=== PATIENT | male | born 1970 | race American Indian/Alaskan Native ===

== ENCOUNTER 2018-12-15 09:56 | Emergency (ER) | payer SELFPAY ==
[2018-12-15] MEDS ORDERED: Sodium Chloride 0.9% 2.5 ML Syringe FLUSH PRN (10:04)
[2018-12-15] MEDS ORDERED: LORazepam 2 MG/ML SDV IVPUSH ONE ×3 (10:04→13:48)
[2018-12-15] MEDS ORDERED: MVI, Adult with Vitamin K 10 ML, Thiamine 100 MG, Folic Acid 1 MG in Sodium Chloride 0.... IV ONE ×4 (10:04)
[2018-12-15] MEDS ORDERED: Sodium Chloride 0.9% 10 ML Syringe FLUSH PRN (10:04)
[2018-12-15] MEDS ORDERED: Ondansetron 4 MG/2 ML SDV IVPUSH ONE ×2 (10:17→13:49)
[2018-12-15] MEDS ORDERED: Morphine 2 MG/ML Syringe IVPUSH ONE ×2 (10:17→10:55)
--- NOTE | 2018-12-15 10:23 | EDM.PDOC ---
ED HPI GENERAL MEDICAL PROBLEM - General Chief Complaint: Drug or Alcohol Abuse Stated Complaint: back pain Time Seen by Provider: 12/15/18 10:00 Source of Information: Reports: Patient History Limitations: Reports: No Limitations - History of Present Illness INITIAL COMMENTS - FREE TEXT/NARRATIVE: History of present illness: []Patient arrives by EMS with withdrawal symptoms from alcohol and low back and shoulder pain after trying to get out of his truck he slipped on the wet step and hit his lower back on the truck. Patient drinks heavily daily has not had a drink since last night at 10 PM. He feels like he is in withdrawal. Review of systems: As per history of present illness and below otherwise all systems reviewed and negative. Past medical history: As per history of present illness and as reviewed below otherwise noncontributory. Surgical history: As per history of present illness and as reviewed below otherwise noncontributory. Social history: No reported history of drug or alcohol abuse. Family history: As per history of present illness and as reviewed below otherwise noncontributory. Physical exam: General: Well developed, well nourished, tremulous, diaphoretic HEENT: Atraumatic, normocephalic, pupils reactive, negative for conjunctival pallor or scleral icterus, mucous membranes moist, throat clear, neck supple, nontender, trachea midline. Lungs: Clear to auscultation, breath sounds equal bilaterally, chest nontender. Heart: S1S2, regular, negative for clicks, rubs, or JVD. Abdomen: NABS, Soft, nondistended, nontender. Negative for masses or hepatosplenomegaly. Negative for costovertebral tenderness. Pelvis: Stable nontender. Genitourinary: Deferred. Rectal: Deferred. Extremities: Atraumatic, negative for cords or calf pain. Neurovascular unremarkable. Neuro: Awake, alert, oriented. Cranial nerves II through XII unremarkable. Cerebellum unremarkable. Motor and sensory unremarkable throughout. Exam nonfocal. Skin:warm and dry Diagnostics: Hypertensive. EKG, CBC, CMP, troponin, alcohol level, chest x-ray, lumbar spine , right shoulder x-ray, 3 hour troponin-increased from baseline troponin Therapeutics: Banana bag, saline, morphine, his Zofran, Ativan, Lopressor ED Course: stable Dr. Nellie Munguia accepts patient Impression: NSTEMI Chronic alcoholism, withdrawal symptoms, Prescriptions: None Plan: Transfer to [facility] Definitive disposition and diagnosis as appropriate pending reevaluation and review of above. Left Chest Pain Score (Numeric/FACES): 5 Lower Mid Back Pain Score (Numeric/FACES): 7 - Related Data Allergies Allergy/AdvReac Type Severity Reaction Status Date / Time No Known Allergies Allergy Verified 12/15/18 10:35 Home Meds: Home Meds . [No Known Home Meds] 08/26/18 [History] Social & Family History - Family History Family Medical History: Noncontributory ED ROS GENERAL - Review of Systems Review Of Systems: ROS reveals no pertinent complaints other than HPI. ED EXAM, GENERAL - Physical Exam Exam: See Below (See history of present illness) Course - Vital Signs Last Recorded V/S: Last Vital Signs Temp 98.6 F 12/15/18 10:36 Pulse 124 H 12/15/18 14:10 Resp 18 12/15/18 14:10 BP 169/112 H 12/15/18 14:10 Pulse Ox 94 L 12/15/18 14:10 - Orders/Labs/Meds Orders: Active Orders 24 hr Category Date Time Status EKG 12 Lead [EKG Documentation Completion] [RC] STAT Care 12/15/18 11:23 Active EKG Documentation Completion [RC] STAT Care 12/15/18 10:04 Active Sodium Chloride 0.9% [Saline Flush] Med 12/15/18 10:04 Active 10 ml FLUSH ASDIRECTED PRN Sodium Chloride 0.9% [Saline Flush] Med 12/15/18 10:04 Active 2.5 ml FLUSH ASDIRECTED PRN Saline Lock Insert [OM.PC] Stat Oth 12/15/18 10:03 Ordered Medication Orders Sodium Chloride (Saline Flush) 10 ml FLUSH ASDIRECTED PRN PRN Reason: Keep Vein Open Last Admin: 12/15/18 10:25 Dose: 10 ml Sodium Chloride (Saline Flush) 2.5 ml FLUSH ASDIRECTED PRN PRN Reason: Keep Vein Open Last Admin: 12/15/18 10:25 Dose: 2.5 ml Labs: Laboratory Tests 12/15/18 12/15/18 12/15/18 Range/Units 10:05 10:05 10:08 WBC 5.00 (4.0-11.0) K/uL RBC 4.51 (4.50-5.90) M/uL Hgb 14.2 (13.0-17.0) g/dL Hct 40.1 (38.0-50.0) % MCV 88.9 (80.0-98.0) fL MCH 31.5 (27.0-32.0) pg MCHC 35.4 (31.0-37.0) g/dL RDW Std Deviation 44.5 (28.0-62.0) fl RDW Coeff of [place] 14 (11.0-15.0) % Plt Count 103 L (150-400) K/uL MPV 9.30 (7.40-12.00) fL Neut % (Auto) 78.4 (48.0-80.0) % Lymph % (Auto) 10.2 L (16.0-40.0) % Cass % (Auto) 11.0 (0.0-15.0) % Eos % (Auto) 0.0 (0.0-7.0) % Baso % (Auto) 0.4 (0.0-1.5) % Neut # (Auto) 3.9 (1.4-5.7) K/uL Lymph # (Auto) 0.5 L (0.6-2.4) K/uL Cass # (Auto) 0.6 (0.0-0.8) K/uL Eos # (Auto) 0.0 (0.0-0.7) K/uL Baso # (Auto) 0.0 (0.0-0.1) K/uL Nucleated RBC % 0.0 /100WBC Nucleated RBCs # 0 K/uL Sodium 136 (136-148) mmol/L Potassium 3.4 L (3.5-5.1) mmol/L Chloride 96 L (98-107) mmol/L Carbon Dioxide 19.2 L (21.0-32.0) mmol/L BUN 7 (7.0-18.0) mg/dL Creatinine 0.8 (0.8-1.3) mg/dL Est Cr Clr Drug Dosing 117.86 mL/min Estimated GFR (MDRD) > 60.0 ml/min Glucose 179 H (74-106) mg/dL Calcium 9.1 (8.5-10.1) mg/dL Total Bilirubin 0.7 (0.2-1.0) mg/dL AST 109 H (15-37) IU/L ALT 75 H (14-63) IU/L Alkaline Phosphatase 69 (46-116) U/L Troponin I < 0.050 (0.000-0.056) ng/mL Total Protein 8.5 H (6.4-8.2) g/dL Albumin 4.8 (3.4-5.0) g/dL Globulin 3.7 (2.6-4.0) g/dL Albumin/Globulin Ratio 1.3 (0.9-1.6) Urine Color Urine Appearance Urine pH (5.0-8.0) Ur Specific [place] (1.001-1.035) Urine Protein (NEGATIVE) mg/dL Urine Glucose (UA) (NEGATIVE) mg/dL Urine Ketones (NEGATIVE) mg/dL Urine Occult Blood (NEGATIVE) Urine Nitrite (NEGATIVE) Urine Bilirubin (NEGATIVE) Urine Urobilinogen (<2.0) EU/dL Ur Leukocyte Esterase (NEGATIVE) Urine RBC (0-2/HPF) Urine WBC (0-5/HPF) Ur Epithelial Cells (NONE-FEW) Urine Bacteria (NEGATIVE) Ethyl Alcohol 101 mg/dL 12/15/18 12/15/18 Range/Units 11:40 13:07 WBC (4.0-11.0) K/uL RBC (4.50-5.90) M/uL Hgb (13.0-17.0) g/dL Hct (38.0-50.0) % MCV (80.0-98.0) fL MCH (27.0-32.0) pg MCHC (31.0-37.0) g/dL RDW Std Deviation (28.0-62.0) fl RDW Coeff of [place] (11.0-15.0) % Plt Count (150-400) K/uL MPV (7.40-12.00) fL Neut % (Auto) (48.0-80.0) % Lymph % (Auto) (16.0-40.0) % Cass % (Auto) (0.0-15.0) % Eos % (Auto) (0.0-7.0) % Baso % (Auto) (0.0-1.5) % Neut # (Auto) (1.4-5.7) K/uL Lymph # (Auto) (0.6-2.4) K/uL Cass # (Auto) (0.0-0.8) K/uL Eos # (Auto) (0.0-0.7) K/uL Baso # (Auto) (0.0-0.1) K/uL Nucleated RBC % /100WBC Nucleated RBCs # K/uL Sodium (136-148) mmol/L Potassium (3.5-5.1) mmol/L Chloride (98-107) mmol/L Carbon Dioxide (21.0-32.0) mmol/L BUN (7.0-18.0) mg/dL Creatinine (0.8-1.3) mg/dL Est Cr Clr Drug Dosing mL/min Estimated GFR (MDRD) ml/min Glucose (74-106) mg/dL Calcium (8.5-10.1) mg/dL Total Bilirubin (0.2-1.0) mg/dL AST (15-37) IU/L ALT (14-63) IU/L Alkaline Phosphatase (46-116) U/L Troponin I 0.067 H* (0.000-0.056) ng/mL Total Protein (6.4-8.2) g/dL Albumin (3.4-5.0) g/dL Globulin (2.6-4.0) g/dL Albumin/Globulin Ratio (0.9-1.6) Urine Color YELLOW Urine Appearance CLEAR Urine pH 7.0 (5.0-8.0) Ur Specific [place] 1.010 (1.001-1.035) Urine Protein TRACE H (NEGATIVE) mg/dL Urine Glucose (UA) 100 H (NEGATIVE) mg/dL Urine Ketones 15 H (NEGATIVE) mg/dL Urine Occult Blood TRACE-INTACT H (NEGATIVE) Urine Nitrite NEGATIVE (NEGATIVE) Urine Bilirubin NEGATIVE (NEGATIVE) Urine Urobilinogen 2.0 H (<2.0) EU/dL Ur Leukocyte Esterase NEGATIVE (NEGATIVE) Urine RBC 0-1 (0-2/HPF) Urine WBC 0-1 (0-5/HPF) Ur Epithelial Cells RARE (NONE-FEW) Urine Bacteria RARE (NEGATIVE) Ethyl Alcohol mg/dL Meds: Medications Generic Name Dose Route Start Last Admin Trade Name Brianq PRN Reason Stop Dose Admin Sodium Chloride 10 ml 12/15/18 10:04 12/15/18 10:25 Saline Flush FLUSH 10 ml ASDIRECTED PRN Administration Keep Vein Open Sodium Chloride 2.5 ml 12/15/18 10:04 12/15/18 10:25 Saline Flush FLUSH 2.5 ml ASDIRECTED PRN Administration Keep Vein Open Discontinued Medications Generic Name Dose Route Start Last Admin Trade Name Cliff PRN Reason Stop Dose Admin Aspirin 324 mg 12/15/18 14:04 12/15/18 14:07 Aspirin PO 12/15/18 14:05 324 mg ONETIME ONE Administration Multivitamins/Minerals 10 ml/ 1,011.2 mls @ 999 mls/hr 12/15/18 10:04 10:25 Thiamine HCl 100 mg/ Folic IV 12/15/18 11:04 999 mls/hr Acid 1 mg/ Sodium Chloride ONETIME ONE Administration Sodium Chloride 1,000 mls @ 999 mls/hr 12/15/18 10:30 12/15/18 10:31 Normal Saline IV 12/15/18 11:30 999 mls/hr .Bolus ONE Administration Labetalol HCl 20 mg 12/15/18 10:55 12/15/18 11:08 Normodyne IVPUSH 12/15/18 10:56 Not Given NOW ONE Protocol Labetalol HCl 20 mg 12/15/18 11:15 12/15/18 11:06 Normodyne IV 12/15/18 11:16 4 ml NOW ONE Administration Lorazepam 1 mg 12/15/18 10:04 12/15/18 10:24 Ativan IVPUSH 12/15/18 10:05 1 mg ONETIME ONE Administration Lorazepam 1 mg 12/15/18 10:47 12/15/18 10:54 Ativan IVPUSH 12/15/18 10:48 1 mg ONETIME ONE Administration Lorazepam 1 mg 12/15/18 13:48 12/15/18 14:03 Ativan IVPUSH 12/15/18 13:49 1 mg ONETIME ONE Administration Morphine Sulfate 2 mg 12/15/18 10:17 12/15/18 10:25 Morphine IVPUSH 12/15/18 10:18 2 mg ONETIME ONE Administration Morphine Sulfate 2 mg 12/15/18 10:55 12/15/18 11:06 Morphine IVPUSH 12/15/18 10:56 2 mg ONETIME ONE Administration Ondansetron HCl 4 mg 12/15/18 10:17 12/15/18 10:24 Zofran IVPUSH 12/15/18 10:18 4 mg ONETIME ONE Administration Ondansetron HCl 4 mg 12/15/18 13:49 12/15/18 14:03 Zofran IVPUSH 12/15/18 13:50 4 mg ONETIME ONE Administration Departure - Departure Time of Disposition: 14:40 Disposition: DC/Tfer to Acute Hospital 02 Condition: Fair Clinical Impression: Alcohol abuse, NSTEMI (non-ST elevated myocardial infarction) Alcohol withdrawal syndrome Qualifiers: Complication of substance-induced condition: uncomplicated Qualified Code(s): F10.230 - Alcohol dependence with withdrawal, uncomplicated - Discharge Information *PRESCRIPTION DRUG MONITORING PROGRAM REVIEWED*: No *COPY OF PRESCRIPTION DRUG MONITORING REPORT IN PATIENT CHANTE: No Referrals: PCP,Unknown [Primary Care Provider] - Forms: ED Department Discharge - My Orders Last 24 Hours: My Active Orders 12/15/18 10:03 Saline Lock Insert [OM.PC] Stat 12/15/18 10:04 EKG Documentation Completion [RC] STAT Sodium Chloride 0.9% [Saline Flush] 10 ml FLUSH ASDIRECTED PRN Sodium Chloride 0.9% [Saline Flush] 2.5 ml FLUSH ASDIRECTED PRN 12/15/18 11:23 EKG 12 Lead [EKG Documentation Completion] [RC] STAT - Assessment/Plan Last 24 Hours: My Active Orders 12/15/18 10:03 Saline Lock Insert [OM.PC] Stat 12/15/18 10:04 EKG Documentation Completion [RC] STAT Sodium Chloride 0.9% [Saline Flush] 10 ml FLUSH ASDIRECTED PRN Sodium Chloride 0.9% [Saline Flush] 2.5 ml FLUSH ASDIRECTED PRN 12/15/18 11:23 EKG 12 Lead [EKG Documentation Completion] [RC] STAT
[2018-12-15] MEDS ORDERED: Sodium Chloride 0.9% 1,000 ML IV ONE (10:30)
--- NOTE | 2018-12-15 10:48 | CR ---
EXAMINATION: Portable chest radiograph. HISTORY: Shortness of breath. FINDINGS: The trachea is midline. The cardiomediastinal silhouette is within normal limits. No pulmonary infiltrates, effusions or pneumothorax. Osseous structures appear unremarkable. IMPRESSION: No acute cardiopulmonary process.
[2018-12-15 10:55] LABS: CHLORIDE,CL 96 mmol/L (98-107); SODIUM,NA 136 mmol/L (136-148)
[2018-12-15] MEDS ORDERED: Labetalol 20 MG/4 ML Syringe IVPUSH ONE (10:55)
[2018-12-15] MEDS ORDERED: Labetalol 100 MG/20 ML MDV IV ONE (11:15)
--- NOTE | 2018-12-15 12:50 | CR ---
EXAMINATION: Right shoulder HISTORY: Fall COMPARISON: None TECHNIQUE: 3 views FINDINGS/IMPRESSION: There is no acute osseous abnormality, dislocation, or fracture. Bone mineralization is normal. There is mild widening of the acromioclavicular joint and calcific densities along the coracoclavicular ligament, likely secondary to a previous separation injury.
--- NOTE | 2018-12-15 12:50 | CR ---
EXAMINATION: Lumbar spine HISTORY: Pain COMPARISON: None TECHNIQUE: AP and lateral views FINDINGS: The lumbar spinal alignment is normal. Vertebral body heights are grossly maintained. Mild disc space narrowing is noted at L5-S1. Marginal osteophyte formation is noted. There is no fracture or acute osseous abnormality. SI joints are symmetric. Right 12 rib fracture, possibly old. IMPRESSION: 1. Mild degenerative changes within the lumbar spine without acute findings.
[2018-12-15] MEDS ORDERED: Aspirin 81 MG Tab.Chew PO ONE (14:04)
== END 2018-12-15 15:16 ==
LOC: MW.ED 09:56
DX: I21.4 Non-ST elevation (NSTEMI) myocardial infarction (principal); F10.230 Alcohol dependence with withdrawal, uncomplicated; Y90.5 Blood alcohol level of 100-119 mg/100 ml
CPT/HCPCS: 36415; 71045; 72100; 73030; 80053; 81001; 84484; 85025; 93005; 96365; 96375; 96376; 99285; A9270; G0480; J2060; J2270; J2405; J3411; J3490; J7040